=== PATIENT | male | born 1985 | race American Indian/Alaskan Native ===

== ENCOUNTER 2019-07-15 09:44 | Emergency (ER) | payer SELFPAY ==
[2019-07-15 09:55] VITALS: BP 132/94
[2019-07-15] MEDS ORDERED: SODIUM CHLORIDE 0.9% 1000 ML 1,000 ML IV ONE (11:06)
[2019-07-15] MEDS ORDERED: ONDANSETRON 4 MG/2 ML INJ IV ONE (11:06)
[2019-07-15] MEDS ORDERED: METOCLOPRAMIDE 10 MG/2 ML INJ IV ONE (11:06)
--- NOTE | 2019-07-15 11:06 | Emergency Department Report ---
ED Headache HPI - General Chief Complaint: Headache Stated Complaint: HEADACHE Time Seen by Provider: 07/15/19 10:46 Source: patient, RN notes reviewed Exam Limitations: no limitations - History of Present Illness Initial Comments: This is a 33-year-old -[place] male who presents to the emergency room with a headache for 3 weeks intermittently. Past medical history of migraines since 15 years old. Patient states he took 2 ibuprofens with no change in symptoms. He started to have sweats which prompted him to come in for further evaluation. He reports headaches are sensitive to smell and light. He reports pain is a intermittent throbbing and stabbing intensity to left parietal and temporal region. He denies nausea, vomiting, visual changes, fever, chills, or cough. Timing/Duration: 1-3 hours, other Quality: stabbing, throbbing (3 weeks intermittently) Head Injury Location: temporal (Left), parietal (Left) Recent Head Trauma: chronic headaches Modifying Factors: improves with: exposure to light, other (Smail) Associated Symptoms: denies symptoms Allergies/Adverse Reactions: Allergies shellfish derived Allergy (Verified 07/15/19 09:56) Unknown Home Medications: Ambulatory Orders Butalb/Acetamin/Caff 50-325-40 [Fioricet 50-325-40] 1 tab PO Q8HR PRN #15 tablet 07/15/19 ED Review of Systems ROS: Stated complaint: HEADACHE Other details as noted in HPI Constitutional: denies: chills, fever Eyes: denies: eye pain, eye discharge, vision change ENT: denies: ear pain, throat pain Respiratory: denies: cough, shortness of breath, wheezing Cardiovascular: denies: chest pain, palpitations Gastrointestinal: denies: abdominal pain, nausea, diarrhea Skin: denies: rash, lesions Neurological: headache. denies: weakness, paresthesias Psychiatric: denies: anxiety, depression ED Past Medical Hx - Past Medical History Previous Medical History?: Yes Hx Headaches / Migraines: Yes - Social History Smoking Status: Never Smoker Substance Use Type: None - Medications Home Medications: Home Medications Medication Instructions Recorded Confirmed Last Taken Type Butalb/Acetamin/Caff 50-325-40 1 tab PO Q8HR PRN #15 tablet 07/15/19 Unknown Rx [Fioricet 50-325-40] ED Physical Exam - General Limitations: No Limitations General appearance: alert, in no apparent distress - Eye Eye exam: Present: PERRL, EOMI. Absent: scleral icterus, conjunctival injection, nystagmus, periorbital swelling, periorbital tenderness Pupils: Present: normal accommodation - ENT ENT exam: Present: normal orophraynx, mucous membranes moist, TM's normal bilaterally, normal external ear exam - Neck Neck exam: Present: normal inspection - Respiratory Respiratory exam: Present: normal lung sounds bilaterally. Absent: respiratory distress - Cardiovascular Cardiovascular Exam: Present: regular rate, normal rhythm. Absent: systolic murmur, diastolic murmur, rubs, gallop - GI/Abdominal GI/Abdominal exam: Present: soft, normal bowel sounds - Extremities Exam Extremities exam: Present: normal inspection - Neurological Exam Neurological exam: Present: alert, oriented X3, normal gait - Psychiatric Psychiatric exam: Present: normal affect, normal mood - Skin Skin exam: Present: warm, dry, intact, normal color. Absent: rash ED Course Vital Signs 07/15/19 09:53 Temperature 97.7 F Pulse Rate 66 Respiratory 16 Rate Blood Pressure 132/94 O2 Sat by Pulse 100 Oximetry ED Medical Decision Making - Medical Decision Making This is a 33 y.o. male that presents with headache for 3 weeks intermittently. History of migraines. Patient is stable and was examined by me. Patient reports headache is gradual on left temporal and parietal side. I believe this is due to benign generalized headache with a diagnosis of tension versus migraine. Patient's exam was reassuring and there is low suspicion for emergent etiology such as intracranial bleed, stroke, or glaucoma. Given reglan, benadryl, dexamethosone, Toradol, and normal saline 1L bolus once in ER. Start Fioricet. Referral to neurology for continued care. No further questions noted by the patient. Discharged home in stable condition. Follow up with PCP in 24-72 hours. Critical care attestation.: If time is entered above; I have spent that time in minutes in the direct care of this critically ill patient, excluding procedure time. ED Disposition Clinical Impression: Headache, acute Qualifiers: Headache type: unspecified Intractability: not intractable Qualified Code(s): R51 - Headache Migraine Qualifiers: Migraine type: without aura Status migrainosus presence: with status migrainosus Intractability: not intractable Qualified Code(s): G43.001 - Migraine without aura, not intractable, with status migrainosus Disposition: - TO HOME OR SELFCARE Is pt being admited?: No Condition: Stable Instructions: Migraine Headache (ED), Acute Headache (ED) Additional Instructions: Take medication at start of headache. Moderate caffeine intake. Eat at scheduled times or 3 meals a day with snacks. Follow up with primary care provider in 24-72 hours. Prescriptions: Butalb/Acetamin/Caff 50-325-40 [Fioricet 50-325-40] 1 tab PO Q8HR PRN #15 tablet PRN Reason: Headache Referrals: [facility] [Provider Group] - 3-5 Days ANALISA DONOVAN MD [Staff Physician] - 3-5 Days [facility] [Outside] - 3-5 Days [facility] [Outside] - 3-5 Days Time of Disposition: 12:42
[2019-07-15] MEDS ORDERED: dexAMETHasone 20 MG/5 ML VIAL IV ONE (11:31)
[2019-07-15] MEDS ORDERED: dexAMETHasone 20 MG/5 ML VIAL ONE (11:33)
[2019-07-15] MEDS ORDERED: dexAMETHasone 10 MG in SODIUM CHLORIDE 0.9% 50 ML IV ONE (12:00)
[2019-07-15] MEDS ORDERED: KETOROLAC 30 MG/1 ML INJ IV ONE (12:40)
== END 2019-07-15 13:03 | disposition home or self-care (01) ==
LOC: EDSEX → ED 09:44
DX: G43.001 Migraine without aura, not intractable, with status migrainosus (principal); Z91.013 Allergy to seafood
CPT/HCPCS: 96374; 96375; 99283; J1100; J1885; J2405; J2765; J7030